=== PATIENT | female | born 1980 | race Caucasian/White ===

== ENCOUNTER 2018-09-12 15:08 | Emergency (ER) | payer MEDICAID ==
[~2018-09-12] VITALS: Ht 162.6 cm; Wt 85.0 kg
[2018-09-12 15:42] VITALS: Ht 162.6 cm; Wt 85.0 kg
[2018-09-12] MEDS ORDERED: ONDANSETRON 4 MG INJ IV STA (19:42)
[2018-09-12] MEDS ORDERED: SOD CHLORIDE 0.9% 500 ML IV STA (19:42)
[2018-09-12] MEDS ORDERED: KETOROLAC 15 MG INJ IV STA (19:42)
--- NOTE | 2018-09-12 19:44 | ERD ---
ER Documentation Chief Complaint Chief Complaint HEMATEMESIS TODAY WITH COUGHING/VOMITING X 4 DAYS HPI 37-year-old female, previously healthy, presents the emergency department, complaining of 2 days with acute onset of nausea and vomiting more than 10 times today, associated with headache and general malaise. Otherwise she denies abdominal pain, no diarrhea or constipation, no urinary symptoms. ROS All systems reviewed and are negative except as per history of present illness. Medications Home Meds Active Scripts Ondansetron Hcl* (Zofran*) 4 Mg Tablet, 4 MG PO Q8H PRN for NAUSEA AND/OR VOMITING, #12 TAB Prov:LISSY MEREDITH MD 09/12/18 Uqfbyliolu-Tvrvdqxmvdfyw-Lbuwzxuc* (Fioricet*) 50-300-40 Mg Capsule, 1 CAP PO TID PRN for HEADACHE, #15 CAP Prov:LISSY MEREDITH MD 09/12/18 Allergies Allergies: Coded Allergies: No Known Allergy (Unverified , 09/12/18) PMhx/Soc Medical and Surgical Hx: pt denies Medical Hx, pt denies Surgical Hx History of Surgery: No Anesthesia Reaction: No Hx Neurological Disorder: No Hx Respiratory Disorders: No Hx Cardiac Disorders: No Hx Psychiatric Problems: No Hx Miscellaneous Medical Probl: No Hx Alcohol Use: No Hx Substance Use: No Hx Tobacco Use: No Smoking Status: Never smoker Physical Exam Vitals Vital Signs Date Temp Pulse Resp B/P (MAP) Pulse Ox O2 O2 Flow FiO2 Time Delivery Rate 09/12/18 97.8 20:00 09/12/18 97.5 66 18 135/76 99 15:42 (95) Physical Exam Const: No acute distress Head: Atraumatic Eyes: Normal Conjunctiva ENT: Normal External Ears, Nose and Mouth. Neck: Full range of motion. No meningismus. Resp: Clear to auscultation bilaterally Cardio: Regular rate and rhythm, no murmurs Abd: Soft, non tender, non distended. Normal bowel sounds Skin: No petechiae or rashes Back: No midline or flank tenderness Ext: No cyanosis, or edema Neur: Awake and alert Psych: Normal Mood and Affect Result Diagram: 09/12/18194909/12/181949 Results 24 hrs Laboratory Tests Test 09/12/18 19:21 09/12/18 19:27 09/12/18 19:50 POC Beta HCG, Qualitative NEGATIVE Bedside Urine pH (LAB) 6.5 Bedside Urine Protein (LAB) Negative Bedside Urine Glucose (UA) Negative Bedside Urine Ketones (LAB) 3+ Bedside Urine Blood Trace-lysed Bedside Urine Nitrite (LAB) Negative Bedside Urine Leukocyte Esterase Negative (L White Blood Count 9.6 10^3/ul Red Blood Count 4.63 10^6/ul Hemoglobin 13.8 g/dl Hematocrit 41.9 % Mean Corpuscular Volume 90.5 fl Mean Corpuscular Hemoglobin 29.8 pg Mean Corpuscular 32.9 g/dl Hemoglobin Concent Red Cell Distribution Width 12.9 % Platelet Count 274 10^3/UL Mean Platelet Volume 10.9 fl Immature Granulocytes % 0.400 % Neutrophils % 75.8 % Lymphocytes % 18.8 % Monocytes % 4.4 % Eosinophils % 0.3 % Basophils % 0.3 % Nucleated Red Blood Cells % 0.0 /100WBC Immature Granulocytes # 0.040 10^3/ul Neutrophils # 7.2 10^3/ul Lymphocytes # 1.8 10^3/ul Monocytes # 0.4 10^3/ul Eosinophils # 0.0 10^3/ul Basophils # 0.0 10^3/ul Nucleated Red Blood Cells # 0.0 10^3/ul Sodium Level 142 mmol/L Potassium Level 4.1 mmol/L Chloride Level 104 mmol/L Carbon Dioxide Level 24 mmol/L Anion Gap 14 Blood Urea Nitrogen 7 mg/dl Creatinine 0.47 mg/dl Est Glomerular Filtrat Rate mL/min > 60 mL/min Glucose Level 88 mg/dl Calcium Level 9.3 mg/dl Total Bilirubin 0.4 mg/dl Direct Bilirubin 0.00 mg/dl Indirect Bilirubin 0.4 mg/dl Aspartate Amino Transf (AST/SGOT) 48 IU/L Alanine 32 IU/L Aminotransferase (ALT/SGPT) Alkaline Phosphatase 59 IU/L Total Protein 7.9 g/dl Albumin 4.6 g/dl Globulin 3.30 g/dl Albumin/Globulin Ratio 1.39 Lipase 45 U/L Current Medications Medications Dose Sig/Aida Start Time Status Last (Trade) Ordered Route PRN Stop Time Admin Dose Reason Admin Sodium 500 ml @ Q1H STAT 09/12/18 DC 09/12/18 Chloride 500 mls/hr IV 19:42 20:00 09/12/18 20:41 Ondansetron 4 mg ONCE STAT 09/12/18 DC 09/12/18 HCl (Zofran IV 19:42 19:59 Inj) 09/12/18 19:49 Ketorolac 15 mg ONCE STAT 09/12/18 DC 09/12/18 Tromethamine IV 19:42 19:59 (Toradol) 09/12/18 19:49 1 tab ONCE ONCE 09/12/18 Acetaminophen PO 21:30 / 09/12/18 21:31 Hydrocodone Bitart ([place] (5/325)) 325 mg ONCE ONCE 09/12/18 Acetaminophen PO 21:30 (Tylenol 09/12/18 21:31 Tab) Procedures/MDM Vital signs stable. Differential diagnosis include but not limited to: UTI, colitis, gastroenteritis, kidney stones, irritable bowel syndrome, inflammatory bowel syndrome, malabsorption syndrome, cholelithiasis, food intolerance, medication side effect, pancreatitis, diverticulitis, bowel obstruction. Physical examination and clinical presentation consistent most likely with viral syndrome likely viral gastroenteritis. During the ED course the patient remained stable, no new complaints. The patient received treatment with IV fluids and IV medications presenting overall improvement of the symptoms. Results and clinical impression discussed with the patient who agrees with management. The patient is stable to be treated outpatient and will be discharged home; some side effects of prescribed medications (headache, rash, nausea, vomiting, diarrhea, drowsiness, habituation, bleeding, hypertension, interactions with other medications) were reviewed. Follow up with the primary care provider in the next 48h is recommended. If symptoms persist, worsen or new symptoms develop, then patient should return to the ED immediately. Instructions explained and given directly by me to the patient with acknowledgment and demonstrated understanding. Disclaimer: Inadvertent spelling and grammatical errors are likely due to EHR/dictation software use and do not reflect on the overall quality of patient care. Also, please note that the electronic time recorded on this note does not necessarily reflect the actual time of the patient encounter. Departure Diagnosis: Primary Impression: Viral syndrome Condition: Stable Additional Instructions: Muchas geoffrey por [facility] para jensen servicio. Esperamos que en jensen visita a la leigha de emergencia jensen problema medico haya sido solucionado y que se sienta mucho mejor. Para estar seguros que jensen mejoria sigue en proceso, le pedimos el favor de hacer horacio samir de seguimiento medico con jensen doctor primario en los proximos 2-4 quiles. Lleve con usted estos documentos y las medicinas recetadas. Si anam sintomas empeoran, NO SE ESPERE, por favor regrese a leigha de emergencia INMEDIATAMENTE. En alka que usted no tenga un mdico de atencin primaria: Llame al mdico o clnica comunitaria de referencia que aparece abajo jonathon las horas de consultorio para hacer horacio samir para que le vean. CLINICAS: [facility] [id number] [facility] [id number] [facility] [id number] [facility] [id number] [facility] [phone] [id number] [facility]. [phone] LISSY MALDONADO MD Sep 12, 2018 19:44
[2018-09-12] MEDS ORDERED: BUTA1CAP38 PO (21:13)
[2018-09-12] MEDS ORDERED: ONDA4TAB8 PO (21:13)
[2018-09-12] MEDS ORDERED: HYDROCODONE/APAP (5/325) TAB PO ONE (21:30)
[2018-09-12] MEDS ORDERED: ACETAMINOPHEN 325 MG TAB PO ONE (21:30)
[2018-09-12 21:44] VITALS: BP 120/72; PULSE 54; RESP 16
== END 2018-09-12 21:45 | disposition home or self-care (01) ==
LOC: FTE 15:08
DX: B34.9 Viral infection, unspecified (principal)
CPT/HCPCS: 36415; 80053; 81003; 81025; 83690; 85025; 96361; 96374; 96375; J1885; J2405; J7040; Z7502; Z7610